=== PATIENT | female | born 1970 | race Caucasian/White ===

== ENCOUNTER 2017-07-26 19:00 | Emergency (ER) | payer OTHER ==
--- NOTE | 2017-07-26 19:08 | PDOC ---
Rapid Medical Evaluation Time Seen by Provider: 07/26/17 19:06 Medical Evaluation: Allergies Allergy/AdvReac Type Severity Reaction Status Date / Time No Known Allergies Allergy Verified 02/22/17 10:59 07/26/17 19:07 I have performed a brief in person evaluation of this patient. The patient presents with chief complaint of : headache, body aches since Sunday (4 days ), took ibuprofen at 8am no fever Pertinent PE findings: nasal congestion I have ordered the following: none The patient will proceed to the ER for further evaluation.
[2017-07-26 19:11] VITALS: BP 115/88; BMI 36.1
[2017-07-26] MEDS ORDERED: IBUPROFEN 400 MG TABLET (FP) PO ONE ×2 (19:13→19:55)
--- NOTE | 2017-07-26 20:09 | PDOC ---
History of Present Illness - General Chief Complaint: Cold Symptoms Stated Complaint: COLD SYMPTOMS Time Seen by Provider: 07/26/17 19:06 History Source: Patient Exam Limitations: No Limitations - History of Present Illness Initial Comments: 07/26/17 20:05 Patient complains of nasal congestion, headache, body aches and fever for the past 4 days. Patient states no recent travel, recent illness or recent sick contacts. Patient denies difficulty breathing, vomiting, abdominal pain, or chest pain. Timing/Duration: reports: other (4 days) Severity: reports: mild Associated Symptoms: reports: cough, fever/chills, muscle aches, nasal congestion Past History - Travel Traveled outside of the country in the last 30 days: No - Past Medical History Allergies/Adverse Reactions: Allergies Allergy/AdvReac Type Severity Reaction Status Date / Time No Known Allergies Allergy Verified 07/26/17 19:08 Home Medications: Ambulatory Orders Methimazole [Tapazole] 5 mg PO DAILY 02/22/17 Anemia: No Asthma: No Cancer: No Cardiac Disorders: No CVA: No COPD: No CHF: No Dementia: No Diabetes: No GI Disorders: No Disorders: No HTN: No Hypercholesterolemia: No Liver Disease: No Seizures: No Thyroid Disease: Yes (HYPO) - Surgical History Abdominal Surgery: No Appendectomy: No Cardiac Surgery: No Cholecystectomy: Yes Lung Surgery: No Neurologic Surgery: No Orthopedic Surgery: No - Suicide/Smoking/Psychosocial Hx Smoking History: Never smoked Have you smoked in the past 12 months: No Hx Alcohol Use: No Drug/Substance Use Hx: No Substance Use Type: None Hx Substance Use Treatment: No Patient Lives Alone: No Lives with/in: spouse/SO Review of Systems - Review of Systems Able to Perform ROS?: Yes Constitutional: Yes: Chills, Fever, Loss of Appetite, Weakness HEENTM: Yes: Nose Congestion Respiratory: Yes: Cough Cardiac (ROS): No: Symptoms Reported ABD/GI: No: Symptoms Reported : No: Symptoms Reported Musculoskeletal: Yes: Joint Pain, Muscle Pain Neurological: Yes: Headache *Physical Exam - Vital Signs Last Vital Signs Temp Pulse Resp BP Pulse Ox 100.6 F H 117 H 19 115/88 97 07/26/17 19:08 07/26/17 19:08 07/26/17 19:08 07/26/17 19:08 07/26/17 19:08 - Physical Exam General Appearance: Yes: Nourished, Appropriately Dressed. No: Apparent Distress HEENT: positive: TMs Normal, Pharynx Normal. negative: Pale Conjunctivae Neck: positive: Supple Respiratory/Chest: positive: Lungs Clear, Normal Breath Sounds. negative: Respiratory Distress, Accessory Muscle Use Cardiovascular: positive: Regular Rhythm, Tachycardia. negative: Murmur Gastrointestinal/Abdominal: positive: Soft. negative: Tenderness Integumentary: positive: Normal Color, Warm, Moist Neurologic: positive: Motor Strength 5/5 (ambulatory) ED Treatment Course - Medications Given in the ED: ED Medications Discontinued Medications Generic Name Dose Route Start Last Admin Trade Name Freq PRN Reason Stop Dose Admin Ibuprofen 800 mg 07/26/17 19:13 07/26/17 19:55 Motrin - PO 07/26/17 19:14 800 mg ONCE ONE Administration Medical Decision Making - Medical Decision Making 07/26/17 20:08 Patient with 4 days of URI symptoms. Patient on exam with fever and tachycardia but otherwise negative physical exam. Patient ordered for Motrin and influenza testing. 07/26/17 21:16 Patient states feeling better. Repeat temp 98.6. Influenza negative. Patient sent home with URI supportive care instructions *DC/Admit/Observation/Transfer Diagnosis at time of Disposition: Cough - Discharge Dispostion Disposition: HOME Condition at time of disposition: Improved - Referrals Referrals: Tamara Sanchez [Primary Care Provider] - - Patient Instructions Printed Discharge Instructions: DI for Common Cold Additional Instructions: Drink plenty of fluids and take 600 mg of Motrin every 6-8 hours and alternate with Tylenol as needed. Follow-up with your physician or return to ED if symptoms worsen - Post Discharge Activity
[2017-07-26 20:50] VITALS: PULSE 89; TEMP 98.7
== END 2017-07-26 21:21 | disposition home or self-care (01) ==
LOC: JERFT 19:00
DX: J06.9 Acute upper respiratory infection, unspecified (principal); E03.9 Hypothyroidism, unspecified
CPT/HCPCS: 87804; 99281-25

== ENCOUNTER 2017-08-13 14:25 | Emergency (ER) | payer OTHER ==
[2017-08-13] MEDS ORDERED: KETOROLAC TROMETHAMINE 30 MG/1 ML VIAL IVPUSH ONE (15:07)
[2017-08-13] MEDS ORDERED: SODIUM CHLORIDE 1,000 ML IV STA (15:07)
[2017-08-13 15:08] VITALS: BP 142/86; PULSE 75; TEMP 98.2; BMI 35.9
--- NOTE | 2017-08-13 15:09 | PDOC ---
Rapid Medical Evaluation Time Seen by Provider: 08/13/17 15:02 Medical Evaluation: Allergies Allergy/AdvReac Type Severity Reaction Status Date / Time No Known Allergies Allergy Verified 07/26/17 19:08 08/13/17 15:02 The patient presents with a chief complaint of: L side pain since this morning. States that the pain comes and goes, but is more intense now. She rates it a 10/ 10. Denies N/V/D. Last BM today. Denies frequency, urgency, hematuria. This has never happened to her before. HX of hysterectomy. I have performed a brief in-person evaluation of this patient; Pertinent physical exam findings: ambulatory, in no respiratory distress. No CVA tenderness, LUQ/LLQ tenderness. VSS I have ordered the following: CBC, CMP, PT/INR, UA, UC, Urine preg, Iv insert , IVF, toradol The patient will proceed to the ED for further evaluation.
[2017-08-13 16:12] LABS: INR 1.09 (0.82-1.09); PROTHROMBIN TIME (PATIENT) 12.3 SEC (9.98-11.88)
[2017-08-13 16:24] LABS: BASO % 0.5 % (0-2.0); EOS % 1.8 % (0-4.5); HEMATOCRIT 39.5 % (32.4-45.2); HEMOGLOBIN 12.9 GM/dL (10.7-15.3); LYMPH % 35.6 % (8-40); MCH 28.9 pg (25.7-33.7); MCHC 32.7 g/dl (32.0-36.0); MEAN CELL VOLUME 88.4 fl (80-96); MEAN PLT VOLUME 8.7 fl (7.5-11.1); MONO % 5.7 % (3.8-10.2); NEUT % 56.4 % (42.8-82.8); PLATELET COUNT 300 K/MM3 (134-434); RBC 4.47 M/mm3 (3.60-5.2); RDW 13.8 % (11.6-15.6); WHITE BLOOD COUNT 8.2 K/mm3 (4.0-10.0)
[2017-08-13] MEDS ORDERED: KETOROLAC TROMETHAMINE 30 MG/1 ML VIAL ONE (16:33)
[2017-08-13] MEDS ORDERED: FAMOTIDINE IV 20 MG/12 ML VIAL IVPUSH ONE ×2 (16:34→16:54)
[2017-08-13] MEDS ORDERED: MAG HYDROX/AL HYDROX/SIMETH 30 ML UNIT-DOSE CUP PO ONE (16:34)
[2017-08-13 16:39] LABS: PH,URINE 5.5 (5.0-8.0); URINE APPEARANCE CLEAR; URINE BILIRUBIN NEGATIVE (NEGATIVE); URINE BLOOD NEGATIVE (NEGATIVE); URINE COLOR LT. YELLOW; URINE GLUCOSE (UA) NEGATIVE (NEGATIVE); URINE KETONE NEGATIVE (NEGATIVE); URINE LEUK ESTERASE NEGATIVE (NEGATIVE); URINE NITRITE NEGATIVE (NEGATIVE); URINE PROTEIN NEGATIVE (NEGATIVE); URINE UROBILINOGEN 0.2 mg/dL (0.2-1.0)
[2017-08-13 16:49] LABS: ALBUMIN 3.9 g/dl (3.4-5.0); ANION GAP 9 (8-16); BLOOD UREA NITROGEN 15 mg/dL (7-18); CALCIUM 8.9 mg/dL (8.5-10.1); CHLORIDE 106 mmol/L (98-107); CO2 24 mmol/L (21-32); CREATININE 0.6 mg/dL (0.55-1.02); GLUCOSE,RANDOM 79 mg/dL (74-106); SGPT/ALT 44 U/L (12-78); SODIUM 139 mmol/L (136-145)
[2017-08-13 16:53] LABS: ALK PHOS 177 U/L (45-117); BILIRUBIN,TOTAL 0.5 mg/dL (0.2-1.0); POTASSIUM 4.6 mmol/L (3.5-5.1); SGOT/AST 34 U/L (15-37); TOT PROT 7.9 g/dl (6.4-8.2)
--- NOTE | 2017-08-13 17:00 | PDOC ---
History of Present Illness - General Chief Complaint: Pain Stated Complaint: LT SIDE/ABD PAIN Time Seen by Provider: 08/13/17 15:02 - History of Present Illness Initial Comments: Ms Ko is a 47yo F with a PMHx of Diverticulitis, Cholecystectomy, Hysterectomy who presents w/ gradual onset LUQ pain that started this morning. Pain is sharp, radiates to her back and epigastrium. She never had this pain before. Pain worsens w/ food, and thus patient has lead patient to have loss of appetite. Denies worsening w/ positional changes. Endorses a remote past history of GERD like symptoms. Endorses nausea due to pain, but no vomiting, no diarrhea, no constipation, no bloody stools. Past History - Past Medical History Allergies/Adverse Reactions: Allergies Allergy/AdvReac Type Severity Reaction Status Date / Time No Known Allergies Allergy Verified 08/13/17 15:05 Home Medications: Ambulatory Orders Methimazole [Tapazole] 5 mg PO DAILY 02/22/17 Pantoprazole Sodium [Protonix] 40 mg PO DAILY #30 tablet. 08/13/17 Anemia: No Asthma: No Cancer: No Cardiac Disorders: No CVA: No COPD: No CHF: No Dementia: No Diabetes: No GI Disorders: No Disorders: No HTN: No Hypercholesterolemia: No Liver Disease: No Seizures: No Thyroid Disease: Yes (HYPO) - Surgical History Abdominal Surgery: No Appendectomy: No Cardiac Surgery: No Cholecystectomy: Yes Lung Surgery: No Neurologic Surgery: No Orthopedic Surgery: No - Suicide/Smoking/Psychosocial Hx Smoking History: Never smoked Have you smoked in the past 12 months: No Hx Alcohol Use: No Drug/Substance Use Hx: No Substance Use Type: None Hx Substance Use Treatment: No Review of Systems - Review of Systems Able to Perform ROS?: Yes Constitutional: No: Chills, Diaphoresis, Fever HEENTM: No: Eye Pain, Blurred Vision, Tearing Respiratory: No: Cough, Orthopnea Cardiac (ROS): No: Chest Pain, Edema ABD/GI: Yes: See HPI, Abdominal Distended, Nausea. No: Blood Streaked Bowels, Rectal Bleeding, Vomiting, Indigestion : No: Burning, Dysuria, Hematuria Musculoskeletal: No: Back Pain, Joint Pain Integumentary: No: Bruising, Dryness Neurological: No: Headache, Numbness, Paresthesia Psychiatric: No: Anxiety, Depression, Frequent Crying Endocrine: No: Excessive Sweating, Flushing Hematologic/Lymphatic: No: Anemia, Blood Clots *Physical Exam - Vital Signs Last Vital Signs Temp Pulse Resp BP Pulse Ox 98.2 F 75 22 142/86 99 08/13/17 15:06 08/13/17 15:06 08/13/17 15:06 08/13/17 15:06 08/13/17 15:06 - Physical Exam Comments: GEN: AAOx3, NAD, Not ill appearing, appears in mild distress HEENT: PERRLA, EOMi CV: S1, S2, RRR LUNG: CTABL ABD: Soft, TTP in LUQ, mildly distended MSK: NO edema, no erythema NEURO: CN 2-12 intact ED Treatment Course - LABORATORY CBC & Chemistry Diagram: 08/13/17 15:30 08/13/17 15:30 - ADDITIONAL ORDERS Additional order review: Laboratory Results 08/13/17 08/13/17 08/13/17 16:06 15:36 15:30 PT with INR 12.30 H INR 1.09 Sodium 139 Potassium 4.6 Chloride 106 Carbon Dioxide 24 Anion Gap 9 BUN 15 Creatinine 0.6 Creat Clearance w eGFR > 60 Random Glucose 79 Calcium 8.9 Total Bilirubin 0.5 AST 34 ALT 44 Alkaline Phosphatase 177 H Total Protein 7.9 Albumin 3.9 Lipase 184 Urine Color Urine Appearance Urine pH Ur Specific [place] Urine Protein Urine Glucose (UA) Urine Ketones Urine Blood Urine Nitrite Urine Bilirubin Urine Urobilinogen Ur Leukocyte Esterase 08/13/17 15:27 PT with INR INR Sodium Potassium Chloride Carbon Dioxide Anion Gap BUN Creatinine Creat Clearance w eGFR Random Glucose Calcium Total Bilirubin AST ALT Alkaline Phosphatase Total Protein Albumin Lipase Urine Color Lt. yellow Urine Appearance Clear Urine pH 5.5 Ur Specific [place] >= 1.030 Urine Protein Negative Urine Glucose (UA) Negative Urine Ketones Negative Urine Blood Negative Urine Nitrite Negative Urine Bilirubin Negative Urine Urobilinogen 0.2 Ur Leukocyte Esterase Negative 08/13/17 15:30 RBC 4.47 MCV 88.4 MCHC 32.7 RDW 13.8 MPV 8.7 Neutrophils % 56.4 Lymphocytes % 35.6 Monocytes % 5.7 Eosinophils % 1.8 Basophils % 0.5 - Medications Given in the ED: ED Medications Discontinued Medications Generic Name Dose Route Start Last Admin Trade Name Freq PRN Reason Stop Dose Admin Sodium Chloride 1,000 mls @ 1,000 mls/hr 08/13/17 15:07 08/13/17 16:30 Normal Saline - IV 08/13/17 16:06 1,000 mls/hr ASDIR STA Administration Ketorolac Tromethamine 30 mg 08/13/17 15:07 08/13/17 16:30 Toradol Injection - IVPUSH 08/13/17 15:08 30 mg ONCE ONE Administration Medical Decision Making - Medical Decision Making 47yo with a PMHx of Cholecystectomy, Diverticulitis who presented w/ gradual onset LUQ pain that started this AM. I suspect this is due to gastritis, since it worsens with meals, and the patient has a remote history of GERD. Unlikely pancreatitis since lipase is wnl. Unlikely infectious since WBC is wnl. Will give pepcid and maalox and reassess. 08/13/17 18:43 Patient states some improvement w/ pepcid and maalox. Less tender on exam. Will give ice chips and reassess *DC/Admit/Observation/Transfer Diagnosis at time of Disposition: Gastritis Qualifiers: Gastritis type: unspecified gastritis Chronicity: acute Gastritis bleeding: without bleeding Qualified Code(s): K29.00 - Acute gastritis without bleeding - Discharge Dispostion Disposition: HOME Condition at time of disposition: Improved Admit: No - Prescriptions Prescriptions: Pantoprazole Sodium [Protonix] 40 mg PO DAILY #30 tablet.dr - Referrals Referrals: Tamara Sanchez [Primary Care Provider] - 3 days Corey Fleming MD [Staff Physician] - 7 days - Patient Instructions Printed Discharge Instructions: DI for Gastritis Additional Instructions: You were seen in the ER due to left sided abdominal pain. We believe this abdominal pain is from gastritis since it worsens with food, and it is improving with the medicine we are giving you here. This condition will get better with medication, but we will ask you to followup with a directional bore operator especially if the pain does not improve - Post Discharge Activity
[2017-08-13] MEDS ORDERED: FAMOTIDINE 20 MG/50 ML IVPB 20 MG/50 ML MG IVPB ONE (17:34)
[2017-08-13] MEDS ORDERED: MAG HYDROX/AL HYDROX/SIMETH 30 ML UNIT-DOSE CUP ONE (17:34)
--- NOTE | 2017-08-13 19:14 | PDOC ---
Attending Attestation - HPI HPI: 08/13/17 19:21 47 yo F here with RUQ pain x 1 day. RUQ pain radiates to back and is worse with eating. Also reports decreased appetite. +Nausea. No F/C. SHx includes cholecystectomy, hysterectomy. - Physicial Exam PE: 08/13/17 19:22 GENERAL: Awake, alert, and fully oriented, in no acute distress HEAD: No signs of trauma EYES: PERRLA, EOMI, sclera anicteric, conjunctiva clear ENT: Auricles normal inspection, hearing grossly normal, nares patent, oropharynx clear without exudates. Moist mucosa NECK: Normal ROM, supple, no lymphadenopathy, JVD, or masses LUNGS: Breath sounds equal, clear to auscultation bilaterally. No wheezes, and no crackles HEART: Regular rate and rhythm, normal S1 and S2, no murmurs, rubs or gallops ABDOMEN: Soft, normoactive bowel sounds. +RUQ ttp. No guarding, no rebound. No masses EXTREMITIES: Normal range of motion, no edema. No clubbing or cyanosis. No cords, erythema, or tenderness NEUROLOGICAL: Cranial nerves II through XII grossly intact. Normal speech, normal gait SKIN: Warm, Dry, normal turgor, no rashes or lesions noted. - Medical Decision Making 08/13/17 19:23 Documentation prepared by Ember Urena, acting as medical records library professor for Elvia Byrne MD. <Ember Urena - Last Filed: 08/13/17 19:21> - Resident Resident Name: Kamille Brooke - ED Attending Attestation I have performed the following: I have examined & evaluated the patient, The case was reviewed & discussed with the resident, I agree w/resident's findings & plan, Exceptions are as noted - HPI HPI: 08/13/17 19:14 47 yo female p/w RUQ pain - Physicial Exam PE: 08/13/17 19:25 labs unremarkable symptoms resolved w meds <Elvia Byrne - Last Filed: 08/13/17 19:25>
== END 2017-08-13 19:30 | disposition home or self-care (01) ==
LOC: JER 14:25
PROC: 3E0337Z Introduction of Electrolytic and Water Balance Substance into Peripheral Vein, Percutaneous Approach (ICD-10-PCS; principal; 2017-08-13)
PROC: 3E0333Z Introduction of Anti-inflammatory into Peripheral Vein, Percutaneous Approach (ICD-10-PCS; 2017-08-13)
PROC: 3E033GC Introduction of Other Therapeutic Substance into Peripheral Vein, Percutaneous Approach (ICD-10-PCS; 2017-08-13)
DX: K29.00 Acute gastritis without bleeding (principal); Z87.19 Personal history of other diseases of the digestive system; Z90.49 Acquired absence of other specified parts of digestive tract; Z90.710 Acquired absence of both cervix and uterus
CPT/HCPCS: 36415; 80053; 81003; 83690; 85025; 85610; 96361; 96374; 96375; 99283-25

== ENCOUNTER 2018-09-29 16:52 | Emergency (ER) | payer OTHER ==
[2018-09-29 17:05] VITALS: BP 148/74; PULSE 75; TEMP 97.7; BMI 36.1
[2018-09-29] MEDS ORDERED: HYOSCYAMINE SULFATE 0.125 MG *ODT PO ONE (17:47)
[2018-09-29] MEDS ORDERED: MAG HYDROX/AL HYDROX/SIMETH 30 ML UNIT-DOSE CUP PO ONE (17:47)
[2018-09-29] MEDS ORDERED: LIDOCAINE VISCOUS 2% ORAL/TOP 20 ML UNIT-DOSE CUP MM ONE (17:47)
[2018-09-29] MEDS ORDERED: MAG HYDROX/AL HYDROX/SIMETH 30 ML UNIT-DOSE CUP ONE (17:57)
[2018-09-29] MEDS ORDERED: LIDOCAINE VISCOUS 2% ORAL/TOP 20 ML UNIT-DOSE CUP ONE (17:57)
--- NOTE | 2018-09-29 18:10 | PDOC ---
History of Present Illness - General Chief Complaint: Pain Stated Complaint: PAIN ON THE LEFT SIDE Time Seen by Provider: 09/29/18 17:39 History Source: Patient Exam Limitations: No Limitations - History of Present Illness Travel History: No Initial Comments: 09/29/18 18:08 48 y/o female presents to the ED with c/o epigastric burning and sharp pains intermittently x 5 days worse after meals. Pt states hx of cholystectomy and GERD but does not take medication. pt denies constipation but does c/o increased bloating and gas. Pt denies change in wt, diet, or bowel movements. Timing/Duration: reports: constant Quality: reports: mild, fullness, sharpness Abdominal Pain Onset Location: reports: LUQ, epigastric Pain Radiation: reports: no radiation Activities at Onset: reports: none Aggravating Factors: improves with: Eating Alleviating Factors: improves with: None Past History - Travel Traveled outside of the country in the last 30 days: No Close contact w/someone who was outside of country & ill: No - Past Medical History Allergies/Adverse Reactions: Allergies Allergy/AdvReac Type Severity Reaction Status Date / Time No Known Allergies Allergy Verified 09/29/18 17:05 Home Medications: Ambulatory Orders Methimazole [Tapazole] 5 mg PO DAILY 02/22/17 Pantoprazole Sodium [Protonix] 40 mg PO DAILY #30 tablet. 08/13/17 Pantoprazole Sodium [Protonix] 40 mg PO DAILY #30 tablet. 09/29/18 Simethicone 80 mg PO PC PRN #30 tab.chew 09/29/18 Anemia: No Asthma: No Cancer: No Cardiac Disorders: No CVA: No COPD: No CHF: No Dementia: No Diabetes: No GI Disorders: No Disorders: No HTN: No Hypercholesterolemia: No Liver Disease: No Seizures: No Thyroid Disease: Yes (HYPO) - Surgical History Abdominal Surgery: No Appendectomy: No Cardiac Surgery: No Cholecystectomy: Yes Lung Surgery: No Neurologic Surgery: No Orthopedic Surgery: No - Suicide/Smoking/Psychosocial Hx Smoking History: Never smoked Have you smoked in the past 12 months: No Hx Alcohol Use: No Drug/Substance Use Hx: No Substance Use Type: None Hx Substance Use Treatment: No Patient Lives Alone: No Lives with/in: parents Review of Systems - Review of Systems Able to Perform ROS?: No Is the patient limited [place] proficient: No Constitutional: No: Symptoms Reported HEENTM: No: Symptoms Reported Respiratory: No: Symptoms reported Cardiac (ROS): No: Symptoms Reported ABD/GI: Yes: Indigestion, Abdominal cramping. No: Blood Streaked Bowels, Constipated, Diarrhea, Nausea, Poor Appetite, Poor Fluid Intake, Vomiting : No: Symptoms Reported Musculoskeletal: No: Symptoms Reported Integumentary: No: Symptoms Reported Neurological: No: Symptoms reported *Physical Exam - Vital Signs Last Vital Signs Temp Pulse Resp BP Pulse Ox 97.7 F 75 18 148/74 99 09/29/18 17:03 09/29/18 17:03 09/29/18 17:03 09/29/18 17:03 09/29/18 17:03 - Physical Exam General Appearance: Yes: Nourished, Appropriately Dressed. No: Apparent Distress Respiratory/Chest: positive: Lungs Clear, Normal Breath Sounds. negative: Respiratory Distress, Accessory Muscle Use Cardiovascular: positive: Regular Rhythm, Regular Rate. negative: Murmur Gastrointestinal/Abdominal: positive: Normal Bowel Sounds, Soft, Tenderness ( epigastric and left epigastric region). negative: Distended, Guarding, Rebound , Hernia Musculoskeletal: negative: CVA Tenderness Extremity: positive: Normal Capillary Refill Integumentary: positive: Normal Color, Warm, Moist Neurologic: positive: Motor Strength 5/5 (ambulatory) Moderate Sedation - Procedure Monitoring Vital Signs: Procedure Monitoring Vital Signs Temperature 97.7 F 09/29/18 17:03 Pulse Rate 75 09/29/18 17:03 Respiratory Rate 18 09/29/18 17:03 Blood Pressure 148/74 09/29/18 17:03 O2 Sat by Pulse Oximetry (%) 99 09/29/18 17:03 ED Treatment Course - LABORATORY CBC & Chemistry Diagram: 09/29/18 18:20 09/29/18 18:20 - RADIOLOGY Radiology Studies Ordered: Category Date Time Status ABDOMEN FLAT & UPRIGHT [RAD] Stat Radiology 09/29/18 17:46 Ordered Medical Decision Making - Medical Decision Making 09/29/18 18:10 CC: Epigasteic and LUQ pain with bloating and gas, hx gerd (on no meds) Exam: left epigastric and LUQ tenderness with no abd dystention or change in BS noted Plan: cbc, comp, FUA, gi cocktail and will reevel 09/29/18 18:39 Abd xray shows nonspecific gas pattern. 09/29/18 18:49 Laboratory Tests 09/29/18 18:20 WBC 8.9 Hgb 14.0 Hct 41.0 Absolute Neuts (auto) 5.2 Pt states feeling better. Discharge home with protonix and gas -x 09/30/18 18:46 Laboratory Tests 09/29/18 18:20 Sodium 140 Potassium 4.0 Chloride 108 H Carbon Dioxide 25 Anion Gap 8 BUN 13 Creatinine 0.6 Random Glucose 95 Calcium 8.9 Total Bilirubin 0.1 L AST 36 ALT 47 Alkaline Phosphatase 168 H Total Protein 7.6 Albumin 3.8 *DC/Admit/Observation/Transfer Diagnosis at time of Disposition: Gas pain - Discharge Dispostion Disposition: HOME Condition at time of disposition: Improved - Prescriptions Prescriptions: Pantoprazole Sodium [Protonix] 40 mg PO DAILY #30 tablet.dr Jmaisonethicone 80 mg PO PC PRN #30 tab.chew PRN Reason: Gas - Referrals Referrals: Keith Way MD [Primary Care Provider] - - Patient Instructions Printed Discharge Instructions: How to Avoid Gas, DI for Gastroesophageal Reflux Disease (GERD) Additional Instructions: Please take medication as prescribed. Please avoid foods high in gas. - Post Discharge Activity
[2018-09-29 18:27] LABS: BASO % 0.6 % (0-2.0); EOS % 2.7 % (0-4.5); LYMPH % 31.3 % (8-40); MCH 30.3 pg (25.7-33.7); MCHC 34.1 g/dl (32.0-36.0); MEAN CELL VOLUME 88.8 fl (80-96); MEAN PLT VOLUME 8.5 fl (7.5-11.1); MONO % 7.2 % (3.8-10.2); NEUT % 58.2 % (42.8-82.8); PLATELET COUNT 273 K/MM3 (134-434); RBC 4.62 M/mm3 (3.60-5.2); RDW 13.2 % (11.6-15.6); WHITE BLOOD COUNT 8.9 K/mm3 (4.0-10.0)
[2018-09-29 19:00] LABS: ALBUMIN 3.8 g/dl (3.4-5.0); ALK PHOS 168 U/L (45-117); ANION GAP 8 MMOL/L (8-16); BILIRUBIN,TOTAL 0.1 mg/dL (0.2-1); BLOOD UREA NITROGEN 13 mg/dL (7-18); CALCIUM 8.9 mg/dL (8.5-10.1); CHLORIDE 108 mmol/L (98-107); CO2 25 mmol/L (21-32); CREATININE 0.6 mg/dL (0.55-1.3); GLUCOSE,RANDOM 95 mg/dL (74-106); SGOT/AST 36 U/L (15-37); SGPT/ALT 47 U/L (13-61); SODIUM 140 mmol/L (136-145); TOT PROT 7.6 g/dl (6.4-8.2)
== END 2018-09-29 18:58 | disposition home or self-care (01) ==
LOC: JER 16:52
DX: R14.1 Gas pain (principal); E03.9 Hypothyroidism, unspecified
CPT/HCPCS: 36415; 74019-TC-FY; 80053; 85025; 99283-25

== ENCOUNTER 2019-07-02 18:38 | Emergency (ER) | payer OTHER ==
[2019-07-02 19:01] VITALS: BP 126/74; PULSE 107; TEMP 101.5; BMI 37.0
[2019-07-02] MEDS ORDERED: ACETAMINOPHEN 500 MG TABLET (FP) PO ONE (19:40)
[2019-07-02] MEDS ORDERED: ACETAMINOPHEN 500 MG TABLET (FP) ONE (19:49)
--- NOTE | 2019-07-02 20:13 | PDOC ---
History of Present Illness - General Chief Complaint: Cold Symptoms Stated Complaint: COLD SYMPTOMS Time Seen by Provider: 07/02/19 19:15 - History of Present Illness Initial Comments: 07/02/19 20:12 49-year-old female without comorbidities presents for flulike symptoms x1 day Past History - Past Medical History Allergies/Adverse Reactions: Allergies Allergy/AdvReac Type Severity Reaction Status Date / Time No Known Allergies Allergy Verified 07/02/19 19:01 Home Medications: Ambulatory Orders Methimazole [Tapazole] 5 mg PO DAILY 02/22/17 Pantoprazole Sodium [Protonix] 40 mg PO DAILY #30 tablet. 08/13/17 Pantoprazole Sodium [Protonix] 40 mg PO DAILY #30 tablet. 09/29/18 Simethicone 80 mg PO PC PRN #30 tab.chew 09/29/18 Anemia: No Asthma: No Cancer: No Cardiac Disorders: No CVA: No COPD: No CHF: No Dementia: No Diabetes: No GI Disorders: No Disorders: No HTN: No Hypercholesterolemia: No Liver Disease: No Seizures: No Thyroid Disease: Yes (HYPO) - Surgical History Abdominal Surgery: No Appendectomy: No Cardiac Surgery: No Cholecystectomy: Yes Lung Surgery: No Neurologic Surgery: No Orthopedic Surgery: No - Psycho Social/Smoking Cessation Hx Smoking History: Never smoked Have you smoked in the past 12 months: No Information on smoking cessation initiated: No Hx Alcohol Use: No Drug/Substance Use Hx: No Substance Use Type: None Hx Substance Use Treatment: No Review of Systems - Review of Systems Constitutional: Yes: Fever HEENTM: Yes: Nose Congestion Respiratory: Yes: Cough *Physical Exam - Vital Signs Last Vital Signs Temp Pulse Resp BP Pulse Ox 101.5 F H 107 H 19 126/74 98 07/02/19 18:58 07/02/19 18:58 07/02/19 18:58 07/02/19 18:58 07/02/19 18:58 - Physical Exam 07/02/19 20:12 GENERAL: The patient is awake, alert, and fully oriented, in no acute distress. HEAD: Normal with no signs of trauma. EYES: sclera anicteric, conjunctiva clear. ENT: Ears normal tympanic membranes normal oropharynx clear uvula midline NECK: Normal range of motion LUNGS: Breath sounds equal, clear to auscultation bilaterally. No wheezes, and no crackles. HEART: S1 and S2 without murmur, rub or gallop. ABDOMEN: Soft, nontender, normoactive bowel sounds. No guarding, no rebound. No masses. EXTREMITIES: Normal range of motion, no edema. No clubbing or cyanosis. No cords, erythema, or tenderness. NEUROLOGICAL: Cranial nerves II through XII grossly intact. Normal speech, normal gait. PSYCH: Normal mood, normal affect. SKIN: Warm, Dry, normal turgor, no rashes or lesions noted. ED Treatment Course - Medications Given in the ED: ED Medications Discontinued Medications Generic Name Dose Route Start Last Admin Trade Name Freq PRN Reason Stop Dose Admin Acetaminophen 1,000 mg 07/02/19 19:40 07/02/19 19:50 Tylenol - PO 07/02/19 19:41 1,000 mg ONCE ONE Administration Medical Decision Making - Medical Decision Making 07/02/19 20:12 Influenza swab negative supportive care for viral upper respiratory infection Discharge - Discharge Information Problems reviewed: Yes Clinical Impression/Diagnosis: Viral URI with cough Condition: Stable Disposition: HOME - Admission No - Follow up/Referral Referrals: Yeny Calvillo MD [Staff Physician] - - Patient Discharge Instructions Patient Printed Discharge Instructions: DI for Viral Upper Respiratory Infection -- Adult Additional Instructions: Tylenol and Motrin for fevers. Return to the emergency room for worsening symptoms. Follow-up with your primary care physician in 2 to 3 days without fail for further evaluation and treatment options. Your influenza swab today was negative. - Post Discharge Activity
== END 2019-07-02 20:28 | disposition home or self-care (01) ==
LOC: JERFT 18:38
DX: J06.9 Acute upper respiratory infection, unspecified (principal); B97.89 Other viral agents as the cause of diseases classified elsewhere; E03.9 Hypothyroidism, unspecified
CPT/HCPCS: 87804; 99281-25

== ENCOUNTER 2020-07-11 20:22 | Emergency (ER) | payer OTHER ==
[2020-07-11 21:14] VITALS: BP 112/85; PULSE 75; TEMP 98.5; BMI 30.2
[2020-07-11] MEDS ORDERED: ONDANSETRON *ODT* 4 MG TABLET SL ONE (23:53)
[2020-07-12] MEDS ORDERED: ONDANSETRON *ODT* 4 MG TABLET ONE (00:15)
== END 2020-07-12 00:56 | disposition home or self-care (01) ==
LOC: JER 20:22
DX: R11.2 Nausea with vomiting, unspecified (principal)
CPT/HCPCS: 99284-25; Q0162

== ENCOUNTER 2021-01-02 15:58 | Emergency (ER) | payer OTHER ==
[2021-01-02 16:10] VITALS: TEMP 97.4; BMI 41.3
[2021-01-02] MEDS ORDERED: ACETAMINOPHEN 1000 MG/100 ML VIAL (NON FORMULARY) IVPB ONE (16:48)
[2021-01-02] MEDS ORDERED: FAMOTIDINE 20 MG/50 ML IVPB 20 MG/50 ML MG IVPB ONE ×2 (16:48→17:07)
[2021-01-02] MEDS ORDERED: SODIUM CHLORIDE 0.9% 500 ML INFUS.BAG IV ONE (17:01)
[2021-01-02] MEDS ORDERED: ACETAMINOPHEN INJECTION 100 ML IVPB ONE (17:06)
[2021-01-02 17:12] LABS: BASO % 0.3 % (0-2.0); EOS % 1.2 % (0-4.5); HEMATOCRIT 41.5 % (32.4-45.2); HEMOGLOBIN 13.8 GM/dL (10.7-15.3); LYMPH % 22.1 % (8-40); MCH 29.2 pg (25.7-33.7); MCHC 33.2 g/dl (32.0-36.0); MEAN PLT VOLUME 7.9 fl (7.5-11.1); MONO % 11.9 % (3.8-10.2); NEUT % 64.5 % (42.8-82.8); PLATELET COUNT 250 10^3/uL (134-434); RBC 4.72 M/mm3 (3.60-5.2); WHITE BLOOD COUNT 6.7 K/mm3 (4.0-10.0)
[2021-01-02 17:24] LABS: CHLORIDE 108 mmol/L (98-107); SODIUM 140 mmol/L (136-145)
[2021-01-02 17:26] LABS: CALCIUM 9.1 mg/dL (8.5-10.1)
[2021-01-02 17:27] LABS: ALBUMIN 3.8 g/dl (3.4-5.0); ANION GAP 8 MMOL/L (8-16); CO2 24 mmol/L (21-32); GLUCOSE,RANDOM 96 mg/dL (74-106); LIPASE 144 U/L (73-393); MAGNESIUM 2.1 mg/dL (1.8-2.4)
[2021-01-02 17:30] LABS: CREATININE 0.6 mg/dL (0.55-1.3); SGOT/AST 36 U/L (15-37); SGPT/ALT 54 U/L (13-61)
[2021-01-02 17:31] LABS: BILIRUBIN,TOTAL 0.4 mg/dL (0.2-1); TOT PROT 7.1 g/dl (6.4-8.2)
[2021-01-02 17:32] LABS: ALK PHOS 134 U/L (45-117)
[2021-01-02 17:34] LABS: URINE APPEARANCE CLOUDY; URINE BILIRUBIN NEGATIVE (NEGATIVE); URINE COLOR YELLOW; URINE GLUCOSE (UA) NEGATIVE (NEGATIVE); URINE KETONE NEGATIVE (NEGATIVE); URINE LEUK ESTERASE NEGATIVE (NEGATIVE); URINE NITRITE NEGATIVE (NEGATIVE); URINE PROTEIN NEGATIVE (NEGATIVE)
[2021-01-02 17:43] LABS: BLOOD UREA NITROGEN 13.4 mg/dL (7-18)
[2021-01-02] MEDS ORDERED: KETOROLAC TROMETHAMINE 30 MG/1 ML VIAL IVPUSH ONE (19:29)
[2021-01-02] MEDS ORDERED: KETOROLAC TROMETHAMINE 30 MG/1 ML VIAL ONE (19:41)
[2021-01-02 20:18] VITALS: BP 105/48; PULSE 58
== END 2021-01-02 20:18 | disposition home or self-care (01) ==
LOC: JER 15:58
PROC: 3E0333Z Introduction of Anti-inflammatory into Peripheral Vein, Percutaneous Approach (ICD-10-PCS; principal; 2021-01-02)
PROC: 3E033GC Introduction of Other Therapeutic Substance into Peripheral Vein, Percutaneous Approach (ICD-10-PCS; 2021-01-02)
PROC: 3E0333Z Introduction of Anti-inflammatory into Peripheral Vein, Percutaneous Approach (ICD-10-PCS; 2021-01-02)
DX: R10.9 Unspecified abdominal pain (principal); N20.1 Calculus of ureter
CPT/HCPCS: 36415; 74177-TC; 80053; 81003; 82550; 83690; 83735; 84484; 85025; 87086; 99285-25; J0131; Q9967

== ENCOUNTER 2022-02-09 17:34 | Emergency (ER) | payer OTHER ==
[2022-02-09 17:54] VITALS: BP 129/67; PULSE 79; RESP 18; TEMP 97.9; BMI 42.0
[2022-02-09] MEDS ORDERED: CYCLOBENZAPRINE HCL 10 MG TABLET (FP) PO ONE (19:39)
[2022-02-09] MEDS ORDERED: IBUPROFEN 600 MG TABLET (FP) PO ONE ×2 (19:39→19:45)
[2022-02-09] MEDS ORDERED: CYCLOBENZAPRINE HCL 10 MG TABLET (FP) ONE (19:45)
[2022-02-09 20:18] LABS: PH,URINE 5.5 (5.0-8.0); URINE APPEARANCE CLEAR; URINE BILIRUBIN NEGATIVE (NEGATIVE); URINE COLOR YELLOW; URINE GLUCOSE (UA) NEGATIVE (NEGATIVE); URINE KETONE TRACE (NEGATIVE); URINE LEUK ESTERASE NEGATIVE (NEGATIVE); URINE NITRITE NEGATIVE (NEGATIVE); URINE PROTEIN NEGATIVE (NEGATIVE); URINE UROBILINOGEN 0.2 mg/dL (0.2-1.0)
== END 2022-02-09 21:30 | disposition home or self-care (01) ==
LOC: JERFT 17:34
DX: M54.50 Low back pain, unspecified (principal)
CPT/HCPCS: 81003; 87086; 99283-25

== ENCOUNTER 2022-06-18 16:59 | Emergency (ER) | payer OTHER ==
[2022-06-18 17:27] VITALS: BP 132/76; PULSE 85; RESP 18; TEMP 98.5; BMI 38.0
[2022-06-18] MEDS ORDERED: IBUPROFEN 600 MG TABLET (FP) PO ONE ×2 (19:34→19:52)
== END 2022-06-18 20:11 | disposition home or self-care (01) ==
LOC: JER 16:59
DX: J09.X2 Influenza due to identified novel influenza A virus with other respiratory manifestations (principal); R05.1 Acute cough
CPT/HCPCS: 0241U-QW; 99283-25

== ENCOUNTER → 2023-11-06 | Day surgery (SDC) | payer OTHER | END | disposition home or self-care (01) | LOC: FMAMMOTONE 08:20 | PROVIDERS: ATTEND Family Medicine | PROC: 0HBV3ZX Excision of Bilateral Breast, Percutaneous Approach, Diagnostic (ICD-10-PCS; principal; 2023-11-06) | DX: N64.89 Other specified disorders of breast (principal); R92.0 Mammographic microcalcification found on diagnostic imaging of breast | CPT/HCPCS: 19081; 76098-TC-FY; 88305-TC ==

== ENCOUNTER 2024-04-11 04:14 | Day surgery (SDC) | payer OTHER ==
[2024-04-09 11:22] VITALS: BMI 41.0
[2024-04-11] MEDS ORDERED: LIDOCAINE 1%/EPI 1:100000 (20 ML MULTI DOSE VIAL) ONE (07:24)
[2024-04-11] MEDS ORDERED: PROPOFOL 20 ML ONE (07:50)
[2024-04-11] MEDS ORDERED: PHENYLEPHRINE HCL 10 MG/1 ML SINGLE DOSE VIAL ONE (07:50)
[2024-04-11] MEDS ORDERED: MIDAZOLAM HCL 2 MG/2 ML SINGLE DOSE VIAL ONE (07:50)
[2024-04-11] MEDS ORDERED: ROCURONIUM BROMIDE 50 MG/5 ML SYRINGE ONE (07:53)
[2024-04-11] MEDS: ceFAZolin 2 GRAM PREMIX BAG IVPB ONE (08:35)
[2024-04-11] MEDS: LIDOCAINE 1%/EPI 1:100000 (20 ML MULTI DOSE VIAL) IJ ONE ×2 (08:48)
[2024-04-11] MEDS ORDERED: LACTATED RINGERS SOLUTION 1,000 ML IV SCH (09:00)
[2024-04-11] MEDS ORDERED: oxyCODONE HCL 5 MG TABLET PO PRN (09:00)
[2024-04-11] MEDS ORDERED: ONDANSETRON 4 MG/2 ML VIAL IVPUSH PRN (09:00)
[2024-04-11 10:00] VITALS: BP 116/76; PULSE 64; RESP 14; TEMP 97.2
== END 2024-04-11 11:40 | disposition home or self-care (01) ==
LOC: JASU-SURG 04:14
PROVIDERS: ATTEND Surgery
PROC: 0JB70ZZ Excision of Back Subcutaneous Tissue and Fascia, Open Approach (ICD-10-PCS; principal; 2024-04-11 08:00)
DX: L72.0 Epidermal cyst (principal)
CPT/HCPCS: 88304-TC; 94760